=== PATIENT | female | born 1965 | race African-American/Black ===

== ENCOUNTER 2017-12-21 19:53 | Inpatient (IN) | payer OTHER ==
[2017-12-21] MEDS ORDERED: PIP/TAZO PER PHARMACY MC (20:30)
[2017-12-21 20:34] LABS: ADD MAN DIFF? YES; BASO # 0.1 x10^3/uL (0.0-0.2); BASO % 0 % (0-3); EOS % 0 % (0-3); HEMATOCRIT 33.4 % (36.0-47.0); HEMOGLOBIN 10.6 g/dL (12.0-15.5); LYMPH # 2.6 x10^3/uL (1.0-4.8); LYMPH % 9 % (24-48); MEAN CORPUSCULAR HEMOGLOBIN 27 pg (25-35); MEAN CORPUSCULAR HGB CONC 32 g/dL (31-37); MEAN CORPUSCULAR VOLUME 84 fL (79-100); MONO % 11 % (0-9); NEUT # 22.4 x10^3uL (1.8-7.7); NEUT % 80 % (31-73); PLATELET COUNT 427 x10^3/uL (140-400); RED BLOOD COUNT 3.98 x10^6/uL (3.50-5.40); RED CELL DISTRIBUTION WIDTH 15.4 % (11.5-14.5); WHITE BLOOD COUNT 28.1 x10^3/uL (4.0-11.0)
[2017-12-21 20:42] LABS: INR 1.2 (0.8-1.1); PROTHROMBIN TIME PATIENT 14.5 SEC (11.7-14.0)
[2017-12-21 20:53] LABS: LACTIC ACID 2.4 mmol/L (0.4-2.0)
[2017-12-21 20:54] LABS: TROPONINI < 0.017 ng/mL (0.000-0.055)
[2017-12-21 21:00] LABS: ALBUMIN 1.7 g/dL (3.4-5.0); ALBUMIN/GLOBULIN RATIO 0.3 (1.0-1.7); ALK PHOS 193 U/L (46-116); ALT (SGPT) 35 U/L (14-59); ANION GAP 32 (6-14); AST (SGOT) 18 U/L (15-37); BLOOD UREA NITROGEN 36 mg/dL (7-20); BUN/CREATININE RATIO 21 (6-20); CALCIUM 9.9 mg/dL (8.5-10.1); CARBON DIOXIDE 12 mmol/L (21-32); CHLORIDE 93 mmol/L (98-107); CREATININE 1.7 mg/dL (0.6-1.0); GFR 38.3; POTASSIUM 3.2 mmol/L (3.5-5.1); SODIUM 137 mmol/L (136-145); TOTAL BILIRUBIN 0.5 mg/dL (0.2-1.0); TOTAL PROTEIN 8.1 g/dL (6.4-8.2)
[2017-12-21] MEDS: IV NORMAL SALINE 1000ML BAG 1,000 ML IV ×2 (21:00→23:37)
[2017-12-21 21:02] LABS: GLUCOSE 549 mg/dL (70-99)
[2017-12-21 21:04] LABS: % BANDS 24 % (0-9); % LYMPHS 12 % (24-48); % METAS 2 % (0-0); % MONOS 11 % (0-10); % SEGS 51 % (35-66)
[2017-12-21 21:05] LABS: PLT ESTIMATE INCREASED (ADEQUATE); ROULEAUX PRESENT; TOXIC GRANULATION SLIGHT; TOXIC VACUOLATION SLIGHT
[2017-12-21] MEDS: ACETAMINOPHEN 325 MG TABLET. PO (21:29)
[2017-12-21] MEDS ORDERED: CONTRAST GIVEN MC (21:30)
[2017-12-21] MEDS: IOHEXOL 300 MG/ML 100ML VIAL. IV (21:45)
[2017-12-21] MEDS: PIPERACILLIN/TAZOBACTAM 3.375 GM in IV NORMAL SALINE 50ML 50 ML IV (21:51)
[2017-12-21] MEDS: VANCOMYCIN 2 GM in IV DEXTROSE 5 %-0.2 % NACL 500 ML IV (22:28)
[2017-12-21] MEDS ORDERED: ACETAMINOPHEN 325 MG TABLET. PO (22:45)
[2017-12-21] MEDS ORDERED: ONDANSETRON PF 4 MG/2 ML VIAL. IV (22:45)
[2017-12-21] MEDS ORDERED: DEXTROSE 50% 25 GM / 50ML DISP.SYRIN. IV (22:45)
[2017-12-21] MEDS ORDERED: fentaNYL PF VIAL 100 MCG/2 ML VIAL IV (22:45)
[2017-12-21] MEDS: fentaNYL PF VIAL 100 MCG/2 ML VIAL IV ×2 (23:00→23:38)
[2017-12-21] MEDS: INSULIN REGULAR 100 UNIT/ML 10ML VIAL. IV (23:38)
[2017-12-21 23:43] LABS: BILIRUBIN,URINE NEGATIVE (NEG); CLARITY,URINE CLEAR; COLOR,URINE YELLOW; GLUCOSE,URINE >=1000 mg/dL (NEG); NITRITE,URINE NEGATIVE (NEG); PH,URINE 5.5; PROTEIN,URINE 30 mg/dL (NEG-TRACE); UROBILINOGEN,URINE 0.2 mg/dL (0.2 mg/dL)
[2017-12-21 23:51] LABS: AMORPHOUS SEDIMENT,UR PRESENT /HPF; BACTERIA,URINE FEW /HPF (0-FEW); RBC,URINE OCC /HPF (0-2); SQUAMOUS EPITHELIAL CELL,UR OCC /LPF; WBC,URINE 0 /HPF (0-4)
[2017-12-22 00:40] LABS: POC GLUCOSE 412 mg/dL (70-99)
[2017-12-22] MEDS: POTASSIUM CHLORIDE 20 MEQ TABLET.ER. PO (01:15)
[2017-12-22] MEDS: INSULIN ASPART 300 UNITS/3 ML INSULN.PEN SQ ×5 (01:30→17:42)
[2017-12-22] MEDS: VANCOMYCIN PER PHARMACY MC (01:33)
[2017-12-22 03:15] LABS: LACTIC ACID 2.5 mmol/L (0.4-2.0)
[2017-12-22 05:35] LABS: ADD MAN DIFF? NO; BASO # 0.1 x10^3/uL (0.0-0.2); BASO % 0 % (0-3); EOS % 0 % (0-3); HEMATOCRIT 31.1 % (36.0-47.0); HEMOGLOBIN 9.9 g/dL (12.0-15.5); LYMPH # 2.2 x10^3/uL (1.0-4.8); LYMPH % 8 % (24-48); MEAN CORPUSCULAR HEMOGLOBIN 27 pg (25-35); MEAN CORPUSCULAR HGB CONC 32 g/dL (31-37); MEAN CORPUSCULAR VOLUME 84 fL (79-100); MONO # 2.2 x10^3/uL (0.0-1.1); MONO % 9 % (0-9); NEUT # 21.7 x10^3uL (1.8-7.7); NEUT % 83 % (31-73); PLATELET COUNT 407 x10^3/uL (140-400); RED BLOOD COUNT 3.71 x10^6/uL (3.50-5.40); RED CELL DISTRIBUTION WIDTH 15.2 % (11.5-14.5); WHITE BLOOD COUNT 26.3 x10^3/uL (4.0-11.0)
[2017-12-22 05:42] LABS: ALBUMIN 1.5 g/dL (3.4-5.0); ALBUMIN/GLOBULIN RATIO 0.2 (1.0-1.7); ALK PHOS 203 U/L (46-116); ALT (SGPT) 33 U/L (14-59); ANION GAP 28 (6-14); AST (SGOT) 22 U/L (15-37); BLOOD UREA NITROGEN 32 mg/dL (7-20); BUN/CREATININE RATIO 20 (6-20); CARBON DIOXIDE 13 mmol/L (21-32); CHLORIDE 97 mmol/L (98-107); CREATININE 1.6 mg/dL (0.6-1.0); GFR 41.1; GLUCOSE 435 mg/dL (70-99); POTASSIUM 3.5 mmol/L (3.5-5.1); SODIUM 138 mmol/L (136-145); TOTAL BILIRUBIN 0.5 mg/dL (0.2-1.0); TOTAL PROTEIN 7.7 g/dL (6.4-8.2)
[2017-12-22] MEDS: PIPERACILLIN/TAZOBACTAM 3.375 GM in IV NORMAL SALINE 100ML 100 ML IV ×2 (05:51→14:34)
[2017-12-22 05:58] LABS: POC GLUCOSE 467 mg/dL (70-99)
[2017-12-22 08:27] LABS: POC GLUCOSE 266 mg/dL (70-99)
[2017-12-22 08:27] LABS: POC GLUCOSE 349 mg/dL (70-99)
[2017-12-22] MEDS ORDERED: INSULIN DETEMIR 300 UNITS/3 ML INSULN.PEN. SQ (09:00)
[2017-12-22] MEDS: LACTOBACILLUS RHAMNOSUS GG 1 CAPSULE. PO ×3 (09:00→20:08)
[2017-12-22] MEDS ORDERED: DEXTROSE 50% 25 GM / 50ML DISP.SYRIN. IV (09:00)
[2017-12-22] MEDS: ENOXAPARIN 40 MG/0.4 ML SYRINGE. SQ (09:22)
[2017-12-22] MEDS: INSULIN DETEMIR 300 UNITS/3 ML INSULN.PEN. SQ (11:26)
[2017-12-22 11:39] LABS: THYROID STIM HORMONE (TSH) 0.658 uIU/mL (0.358-3.74)
[2017-12-22 12:57] LABS: VITAMIN-B12 > 2000 pg/mL (247-911)
[2017-12-22 14:55] LABS: POC GLUCOSE 286 mg/dL (70-99)
[2017-12-22 15:25] LABS: BARBITURATES NEG (NEG); BENZODIAZEPINES NEG (NEG); CANNABINOIDS NEG (NEG); COCAINE NEG (NEG); METHADONE NEG (NEG); OPIATES NEG (NEG); PHENCYCLIDINE NEG (NEG)
[2017-12-22 15:27] LABS: AMPHETAMINE/METHAMPHETAMINE NEG (NEG); ETHANOL, URINE NEG (NEG)
[2017-12-22] MEDS: CHOLECALCIFEROL (VITAMIN D3) 5,000 UNIT CAPSULE PO (17:00)
[2017-12-22] MEDS: ASPIRIN 300 MG SUPP.RECT PR (17:29)
[2017-12-22 18:03] LABS: POC GLUCOSE 199 mg/dL (70-99)
[2017-12-22] MEDS: PIPERACILLIN/TAZOBACTAM 3.375 GM in IV NORMAL SALINE 50ML 50 ML IV (18:12)
[2017-12-22] MEDS: CALCIUM CARBONATE 500 MG TABLET PO (20:08)
[2017-12-22 21:10] LABS: POC GLUCOSE 202 mg/dL (70-99)
[2017-12-22] MEDS ORDERED: VANCOMYCIN 1.5 GM in IV DEXTROSE 5 %-0.2 % NACL 500 ML IV (22:00)
[2017-12-23] MEDS: PIPERACILLIN/TAZOBACTAM 3.375 GM in IV NORMAL SALINE 50ML 50 ML IV ×4 (00:43→17:37)
[2017-12-23 04:41] LABS: ADD MAN DIFF? NO
[2017-12-23 04:50] LABS: BASO # 0.1 x10^3/uL (0.0-0.2); BASO % 0 % (0-3); EOS # 0.1 x10^3/uL (0.0-0.7); EOS % 0 % (0-3); HEMATOCRIT 26.5 % (36.0-47.0); HEMOGLOBIN 8.7 g/dL (12.0-15.5); LYMPH # 2.1 x10^3/uL (1.0-4.8); LYMPH % 9 % (24-48); MEAN CORPUSCULAR HEMOGLOBIN 26 pg (25-35); MEAN CORPUSCULAR HGB CONC 33 g/dL (31-37); MEAN CORPUSCULAR VOLUME 80 fL (79-100); MONO # 2.2 x10^3/uL (0.0-1.1); MONO % 9 % (0-9); NEUT # 19.9 x10^3uL (1.8-7.7); NEUT % 82 % (31-73); PLATELET COUNT 327 x10^3/uL (140-400); RED BLOOD COUNT 3.32 x10^6/uL (3.50-5.40); RED CELL DISTRIBUTION WIDTH 14.5 % (11.5-14.5); WHITE BLOOD COUNT 24.4 x10^3/uL (4.0-11.0)
[2017-12-23 05:15] LABS: ALBUMIN 1.3 g/dL (3.4-5.0); ALBUMIN/GLOBULIN RATIO 0.3 (1.0-1.7); ALK PHOS 256 U/L (46-116); ALT (SGPT) 78 U/L (14-59); ANION GAP 13 (6-14); AST (SGOT) 97 U/L (15-37); BLOOD UREA NITROGEN 36 mg/dL (7-20); BUN/CREATININE RATIO 23 (6-20); CALCIUM 8.4 mg/dL (8.5-10.1); CARBON DIOXIDE 24 mmol/L (21-32); CHLORIDE 99 mmol/L (98-107); CREATININE 1.6 mg/dL (0.6-1.0); GFR 41.1; GLUCOSE 315 mg/dL (70-99); SODIUM 136 mmol/L (136-145); TOTAL BILIRUBIN 0.4 mg/dL (0.2-1.0); TOTAL PROTEIN 5.9 g/dL (6.4-8.2)
[2017-12-23 05:18] LABS: POTASSIUM 2.8 mmol/L (3.5-5.1)
[2017-12-23 05:23] LABS: CHOLESTEROL 113 mg/dL (0-200); HDLC 8 mg/dL (40-60); LDLC 79 mg/dL (0-100); NON-HDL CHOLESTEROL 105 mg/dL (0-129); TRIGLYCERIDES 132 mg/dL (0-150); VLDLC 26 mg/dL (0-40)
[2017-12-23 05:24] LABS: CHOLESTEROL/HDL RATIO 14.1
[2017-12-23 07:52] LABS: POC GLUCOSE 370 mg/dL (70-99)
[2017-12-23] MEDS: INSULIN ASPART 300 UNITS/3 ML INSULN.PEN SQ ×5 (08:00→17:45)
[2017-12-23] MEDS: ASPIRIN 325 MG TABLET PO (08:47)
[2017-12-23] MEDS: LACTOBACILLUS RHAMNOSUS GG 1 CAPSULE. PO ×2 (08:47→20:40)
[2017-12-23] MEDS: CHOLECALCIFEROL (VITAMIN D3) 5,000 UNIT CAPSULE PO (08:47)
[2017-12-23] MEDS: CALCIUM CARBONATE 500 MG TABLET PO ×2 (08:47→20:41)
[2017-12-23] MEDS: POTASSIUM CHLORIDE 20 MEQ TABLET.ER. PO (08:47)
[2017-12-23] MEDS: ENOXAPARIN 40 MG/0.4 ML SYRINGE. SQ (08:48)
[2017-12-23] MEDS: INSULIN DETEMIR 300 UNITS/3 ML INSULN.PEN. SQ (09:06)
[2017-12-23 10:28] LABS: ANION GAP 12 (6-14); BLOOD UREA NITROGEN 39 mg/dL (7-20); CALCIUM 8.5 mg/dL (8.5-10.1); CARBON DIOXIDE 24 mmol/L (21-32); CHLORIDE 95 mmol/L (98-107); CREATININE 1.7 mg/dL (0.6-1.0); GFR 38.3; GLUCOSE 386 mg/dL (70-99); SODIUM 131 mmol/L (136-145)
[2017-12-23 10:49] LABS: POTASSIUM 2.7 mmol/L (3.5-5.1)
[2017-12-23] MEDS ORDERED: POTASSIUM CHLORIDE 20MEQ 50 ML IV (11:30)
[2017-12-23 11:51] LABS: POC GLUCOSE 376 mg/dL (70-99)
[2017-12-23] MEDS: IV NORMAL SALINE 1000ML BAG 1,000 ML IV ×2 (13:13→20:41)
[2017-12-23] MEDS: POTASSIUM CHLORIDE 10 MEQ in IV NORMAL SALINE 100ML 100 ML IV ×4 (13:14→16:30)
[2017-12-23] MEDS: oxyCODONE/APAP 5/325 1 TAB TABLET PO (14:07)
[2017-12-23 17:05] LABS: POC GLUCOSE 254 mg/dL (70-99)
[2017-12-24] MEDS: PIPERACILLIN/TAZOBACTAM 3.375 GM in IV NORMAL SALINE 50ML 50 ML IV ×4 (01:05→18:38)
[2017-12-24] MEDS: INSULIN ASPART 300 UNITS/3 ML INSULN.PEN SQ ×7 (07:30→18:52)
[2017-12-24 07:36] LABS: POC GLUCOSE 238 mg/dL (70-99)
[2017-12-24] MEDS ORDERED: ONDANSETRON PF 4 MG/2 ML VIAL. IV (08:30)
[2017-12-24] MEDS: IV NORMAL SALINE 1000ML BAG 1,000 ML IV (08:31)
[2017-12-24] MEDS: ASPIRIN 325 MG TABLET PO (08:31)
[2017-12-24] MEDS: CHOLECALCIFEROL (VITAMIN D3) 5,000 UNIT CAPSULE PO (08:31)
[2017-12-24] MEDS: LACTOBACILLUS RHAMNOSUS GG 1 CAPSULE. PO ×2 (08:31→20:30)
[2017-12-24] MEDS: CALCIUM CARBONATE 500 MG TABLET PO ×2 (08:31→20:30)
[2017-12-24] MEDS: ENOXAPARIN 40 MG/0.4 ML SYRINGE. SQ (08:31)
[2017-12-24] MEDS: INSULIN DETEMIR 300 UNITS/3 ML INSULN.PEN. SQ (08:52)
[2017-12-24] MEDS: oxyCODONE/APAP 5/325 1 TAB TABLET PO ×2 (08:54→15:59)
[2017-12-24 10:39] LABS: ANION GAP 13 (6-14); BLOOD UREA NITROGEN 38 mg/dL (7-20); CALCIUM 8.1 mg/dL (8.5-10.1); CARBON DIOXIDE 21 mmol/L (21-32); CHLORIDE 99 mmol/L (98-107); CREATININE 1.8 mg/dL (0.6-1.0); GFR 35.9; GLUCOSE 313 mg/dL (70-99); SODIUM 133 mmol/L (136-145)
[2017-12-24 10:44] LABS: POTASSIUM 2.7 mmol/L (3.5-5.1)
[2017-12-24 12:00] LABS: POC GLUCOSE 203 mg/dL (70-99)
[2017-12-24] MEDS ORDERED: DEXTROSE 50% 25 GM / 50ML DISP.SYRIN. IV (15:00)
[2017-12-24] MEDS ORDERED: POTASSIUM CHLORIDE 40 MEQ in IV NORMAL SALINE 1000ML BAG 1,000 ML IV (15:07)
[2017-12-24] MEDS ORDERED: POTASSIUM CHLORIDE 20 MEQ TABLET.ER. PO (15:15)
[2017-12-24] MEDS ORDERED: MAGNESIUM SULFATE 2GM 50 ML IV ×2 (15:15)
[2017-12-24 15:43] LABS: PREALBUMIN 6.4 mg/dL (16.0-42.0)
[2017-12-24] MEDS: POTASSIUM CHLORIDE 20 MEQ TABLET.ER. PO ×2 (15:59→18:38)
[2017-12-24] MEDS ORDERED: INSULIN ASPART 300 UNITS/3 ML INSULN.PEN SQ (17:00)
[2017-12-24 18:28] LABS: POTASSIUM 3.1 mmol/L (3.5-5.1)
[2017-12-24] MEDS: POTASSIUM CL 40MEQ IN 0.9%NACL 1,000 ML IV (18:38)
[2017-12-24 18:43] LABS: POC GLUCOSE 118 mg/dL (70-99)
[2017-12-24 20:45] LABS: POC GLUCOSE 90 mg/dL (70-99)
[2017-12-25] MEDS: PIPERACILLIN/TAZOBACTAM 3.375 GM in IV NORMAL SALINE 50ML 50 ML IV ×3 (00:31→12:00)
[2017-12-25 04:50] LABS: ADD MAN DIFF? NO
[2017-12-25 05:18] LABS: BASO # 0.1 x10^3/uL (0.0-0.2); BASO % 0 % (0-3); EOS # 0.2 x10^3/uL (0.0-0.7); EOS % 1 % (0-3); HEMATOCRIT 26.3 % (36.0-47.0); HEMOGLOBIN 8.6 g/dL (12.0-15.5); LYMPH % 11 % (24-48); MEAN CORPUSCULAR HEMOGLOBIN 26 pg (25-35); MEAN CORPUSCULAR HGB CONC 33 g/dL (31-37); MEAN CORPUSCULAR VOLUME 81 fL (79-100); MONO # 1.9 x10^3/uL (0.0-1.1); MONO % 7 % (0-9); NEUT # 21.9 x10^3uL (1.8-7.7); NEUT % 81 % (31-73); PLATELET COUNT 306 x10^3/uL (140-400); RED BLOOD COUNT 3.26 x10^6/uL (3.50-5.40); RED CELL DISTRIBUTION WIDTH 14.3 % (11.5-14.5)
[2017-12-25] MEDS: POTASSIUM CL 40MEQ IN 0.9%NACL 1,000 ML IV ×3 (05:41→22:44)
[2017-12-25] MEDS: oxyCODONE/APAP 5/325 1 TAB TABLET PO ×3 (05:45→23:24)
[2017-12-25 05:57] LABS: ALBUMIN 1.2 g/dL (3.4-5.0); ANION GAP 10 (6-14); BLOOD UREA NITROGEN 28 mg/dL (7-20); CALCIUM 8.2 mg/dL (8.5-10.1); CARBON DIOXIDE 22 mmol/L (21-32); CHLORIDE 102 mmol/L (98-107); CREATINE KINASE 59 U/L (26-192); CREATININE 1.3 mg/dL (0.6-1.0); GFR 52.3; GLUCOSE 73 mg/dL (70-99); PHOSPHORUS 1.2 mg/dL (2.6-4.7); POTASSIUM 3.5 mmol/L (3.5-5.1); SODIUM 134 mmol/L (136-145)
[2017-12-25 07:29] LABS: POC GLUCOSE 174 mg/dL (70-99)
[2017-12-25] MEDS: LACTOBACILLUS RHAMNOSUS GG 1 CAPSULE. PO ×2 (09:52→20:49)
[2017-12-25] MEDS: CHOLECALCIFEROL (VITAMIN D3) 5,000 UNIT CAPSULE PO (09:52)
[2017-12-25] MEDS: ASPIRIN 325 MG TABLET PO (09:52)
[2017-12-25] MEDS: CALCIUM CARBONATE 500 MG TABLET PO ×2 (09:52→20:49)
[2017-12-25] MEDS: ENOXAPARIN 40 MG/0.4 ML SYRINGE. SQ (09:52)
[2017-12-25] MEDS: INSULIN DETEMIR 300 UNITS/3 ML INSULN.PEN. SQ (10:06)
[2017-12-25] MEDS: INSULIN ASPART 300 UNITS/3 ML INSULN.PEN SQ ×7 (10:07→19:03)
[2017-12-25 12:11] LABS: POC GLUCOSE 206 mg/dL (70-99)
[2017-12-25] MEDS: DEXTROSE IV ×3 (12:28→20:51)
[2017-12-25] MEDS: POTASSIUM PHOSPHATE DIBASIC IV ×3 (12:28→20:51)
[2017-12-25] MEDS: NACL IV ×3 (12:28→20:51)
[2017-12-25 12:51] LABS: POTASSIUM 3.5 mmol/L (3.5-5.1)
[2017-12-25] MEDS: MEROPENEM IV Push 500 MG VIAL. IVP ×3 (12:56→23:41)
[2017-12-25] MEDS: MICAFUNGIN 100 MG in IV DEXTROSE 5% 100 ML IV (12:57)
[2017-12-25] MEDS: CLINDAMYCIN 600MG PREMIX 50 ML IV ×2 (14:30→23:41)
[2017-12-25 15:29] LABS: BILIRUBIN,URINE SMALL (NEG); CLARITY,URINE CLEAR; COLOR,URINE AMBER; GLUCOSE,URINE 100 mg/dL (NEG); NITRITE,URINE NEGATIVE (NEG); PROTEIN,URINE 100 mg/dL (NEG-TRACE)
[2017-12-25 15:43] LABS: BACTERIA,URINE 0 /HPF (0-FEW); WBC,URINE >40 /HPF (0-4); YEAST,URINE PRESENT /HPF
[2017-12-25] MEDS ORDERED: MEROPENEM 500 MG in IV NORMAL SALINE 50ML 50 ML IV (18:00)
[2017-12-25 18:45] LABS: POTASSIUM 3.9 mmol/L (3.5-5.1)
[2017-12-25 22:53] LABS: POC GLUCOSE 119 mg/dL (70-99)
[2017-12-26 05:03] LABS: ADD MAN DIFF? NO
[2017-12-26 05:12] LABS: BASO # 0.1 x10^3/uL (0.0-0.2); BASO % 0 % (0-3); EOS # 0.2 x10^3/uL (0.0-0.7); EOS % 1 % (0-3); HEMATOCRIT 25.2 % (36.0-47.0); HEMOGLOBIN 8.1 g/dL (12.0-15.5); LYMPH # 3.4 x10^3/uL (1.0-4.8); LYMPH % 16 % (24-48); MEAN CORPUSCULAR HEMOGLOBIN 26 pg (25-35); MEAN CORPUSCULAR HGB CONC 32 g/dL (31-37); MEAN CORPUSCULAR VOLUME 83 fL (79-100); MONO # 2.3 x10^3/uL (0.0-1.1); MONO % 11 % (0-9); NEUT # 14.7 x10^3uL (1.8-7.7); NEUT % 71 % (31-73); PLATELET COUNT 285 x10^3/uL (140-400); RED BLOOD COUNT 3.06 x10^6/uL (3.50-5.40); RED CELL DISTRIBUTION WIDTH 14.8 % (11.5-14.5); WHITE BLOOD COUNT 20.7 x10^3/uL (4.0-11.0)
[2017-12-26 05:42] LABS: ALBUMIN 1.2 g/dL (3.4-5.0); ANION GAP 12 (6-14); BLOOD UREA NITROGEN 22 mg/dL (7-20); CALCIUM 8.5 mg/dL (8.5-10.1); CARBON DIOXIDE 21 mmol/L (21-32); CHLORIDE 100 mmol/L (98-107); CREATINE KINASE 90 U/L (26-192); CREATININE 1.2 mg/dL (0.6-1.0); GFR 57.3; GLUCOSE 126 mg/dL (70-99); PHOSPHORUS 2.8 mg/dL (2.6-4.7); SODIUM 133 mmol/L (136-145)
[2017-12-26] MEDS: MEROPENEM IV Push 500 MG VIAL. IVP ×2 (05:55→12:14)
[2017-12-26] MEDS: CLINDAMYCIN 600MG PREMIX 50 ML IV ×3 (05:55→22:29)
[2017-12-26] MEDS: MORPHINE SULFATE 4 MG/ML DISP.SYRIN. IV ×2 (05:55→17:23)
[2017-12-26 06:19] LABS: HEMOGLOBIN A1C 16.9 % (4.8-5.6)
[2017-12-26] MEDS: INSULIN ASPART 300 UNITS/3 ML INSULN.PEN SQ ×7 (07:30→18:31)
[2017-12-26 07:52] LABS: POC GLUCOSE 139 mg/dL (70-99)
[2017-12-26] MEDS: ASPIRIN 325 MG TABLET PO (08:00)
[2017-12-26] MEDS: LACTOBACILLUS RHAMNOSUS GG 1 CAPSULE. PO ×2 (09:00→20:16)
[2017-12-26] MEDS: CHOLECALCIFEROL (VITAMIN D3) 5,000 UNIT CAPSULE PO (09:00)
[2017-12-26] MEDS: INSULIN DETEMIR 300 UNITS/3 ML INSULN.PEN. SQ (09:00)
[2017-12-26] MEDS: CALCIUM CARBONATE 500 MG TABLET PO ×2 (09:00→20:16)
[2017-12-26] MEDS: ENOXAPARIN 40 MG/0.4 ML SYRINGE. SQ (10:00)
[2017-12-26] MEDS: POTASSIUM CL 40MEQ IN 0.9%NACL 1,000 ML IV ×2 (10:54→20:24)
[2017-12-26 12:03] LABS: POTASSIUM 4.7 mmol/L (3.5-5.1)
[2017-12-26] MEDS: MICAFUNGIN 100 MG in IV DEXTROSE 5% 100 ML IV (12:15)
[2017-12-26 12:27] LABS: POC GLUCOSE 167 mg/dL (70-99)
[2017-12-26] MEDS ORDERED: fentaNYL PF VIAL 100 MCG/2 ML VIAL (12:38)
[2017-12-26] MEDS ORDERED: PROPOFOL 20 ML IV (12:38)
[2017-12-26] MEDS ORDERED: BUPIVACAINE-EPI 0.25%-1:200000 50 ML VIAL. (13:36)
[2017-12-26] MEDS: IV RINGERS,LACTATED 1000ML 1,000 ML IV (14:48)
[2017-12-26 15:01] LABS: POC GLUCOSE 190 mg/dL (70-99)
[2017-12-26] MEDS: DEXTROSE 5% IV ×2 (15:37→22:29)
[2017-12-26] MEDS: ACYCLOVIR SODIUM IV ×2 (15:37→22:29)
[2017-12-26 15:39] LABS: TOTAL PROTEIN CREATININE RATIO 1165 mg/g creat (0-200); UR CREATININE RD 129.5 mg/dL (Not Estab.); UR PROTEIN RD 150.9 mg/dL (Not Estab.)
[2017-12-26] MEDS ORDERED: FAMOTIDINE 20 MG/2 ML VIAL (16:04)
[2017-12-26] MEDS ORDERED: ONDANSETRON PF 4 MG/2 ML VIAL. (16:04)
[2017-12-26] MEDS ORDERED: SEVOFLURANE 31 TO 60 MINUTES. IH (16:28)
[2017-12-26 16:53] LABS: POC GLUCOSE 228 mg/dL (70-99)
[2017-12-26] MEDS ORDERED: INSULIN ASPART 100 UNIT/ML 10ML VIAL. SQ (16:59)
[2017-12-26 17:41] LABS: POC GLUCOSE 224 mg/dL (70-99)
[2017-12-26] MEDS ORDERED: POTASSIUM CHLORIDE 20 MEQ TABLET.ER. PO (17:45)
[2017-12-26] MEDS: MEROPENEM 500 MG in IV NORMAL SALINE 50ML 50 ML IV ×2 (18:24→23:54)
[2017-12-26 19:06] LABS: POTASSIUM 4.9 mmol/L (3.5-5.1)
[2017-12-26 21:17] LABS: POC GLUCOSE 259 mg/dL (70-99)
[2017-12-27] MEDS: POTASSIUM CL 40MEQ IN 0.9%NACL 1,000 ML IV (03:36)
[2017-12-27] MEDS: IV RINGERS,LACTATED 1000ML 1,000 ML IV (03:36)
[2017-12-27 04:29] LABS: POC GLUCOSE 125 mg/dL (70-99)
[2017-12-27] MEDS: CLINDAMYCIN 600MG PREMIX 50 ML IV (05:43)
[2017-12-27] MEDS: MEROPENEM 500 MG in IV NORMAL SALINE 50ML 50 ML IV ×4 (05:43→23:27)
[2017-12-27] MEDS: DEXTROSE 5% IV (06:31)
[2017-12-27] MEDS: ACYCLOVIR SODIUM IV (06:31)
[2017-12-27] MEDS: MORPHINE SULFATE 4 MG/ML DISP.SYRIN. IV ×2 (06:45→15:01)
[2017-12-27 07:17] LABS: ALBUMIN 1.1 g/dL (3.4-5.0); CALCIUM 8.1 mg/dL (8.5-10.1)
[2017-12-27 07:18] LABS: ANION GAP 14 (6-14); BLOOD UREA NITROGEN 22 mg/dL (7-20); CARBON DIOXIDE 18 mmol/L (21-32); CHLORIDE 97 mmol/L (98-107); CREATINE KINASE 130 U/L (26-192); CREATININE 1.1 mg/dL (0.6-1.0); GFR 63.4; GLUCOSE 370 mg/dL (70-99); PHOSPHORUS 2.8 mg/dL (2.6-4.7); POTASSIUM 5.7 mmol/L (3.5-5.1); SODIUM 129 mmol/L (136-145)
[2017-12-27 07:48] LABS: POC GLUCOSE 374 mg/dL (70-99)
[2017-12-27] MEDS: LACTOBACILLUS RHAMNOSUS GG 1 CAPSULE. PO ×2 (09:04→21:14)
[2017-12-27] MEDS: ASPIRIN 325 MG TABLET PO (09:04)
[2017-12-27] MEDS: CALCIUM CARBONATE 500 MG TABLET PO ×2 (09:05→21:14)
[2017-12-27] MEDS: CHOLECALCIFEROL (VITAMIN D3) 5,000 UNIT CAPSULE PO (09:05)
[2017-12-27] MEDS: INSULIN DETEMIR 300 UNITS/3 ML INSULN.PEN. SQ ×2 (09:20→12:29)
[2017-12-27] MEDS: INSULIN ASPART 300 UNITS/3 ML INSULN.PEN SQ ×6 (09:28→18:01)
[2017-12-27] MEDS: ERGOCALCIFEROL (VITAMIN D2) 50,000 UNIT CAPSULE. PO (09:55)
[2017-12-27] MEDS: ACETAMINOPHEN 500 MG TABLET PO (10:35)
[2017-12-27] MEDS: oxyCODONE/APAP 5/325 1 TAB TABLET PO (10:36)
[2017-12-27 12:00] LABS: POC GLUCOSE 419 mg/dL (70-99)
[2017-12-27] MEDS ORDERED: LOPERAMIDE 2 MG CAPSULE PO (12:00)
[2017-12-27] MEDS: MICAFUNGIN 100 MG in IV DEXTROSE 5% 100 ML IV (13:12)
[2017-12-27] MEDS: SODIUM BICARB ADULT 8.4% 50 MEQ/50 ML DISP.SYRIN. IV ×2 (14:21→17:11)
[2017-12-27 16:44] LABS: POC GLUCOSE 242 mg/dL (70-99)
[2017-12-27 21:27] LABS: POC GLUCOSE 141 mg/dL (70-99)
[2017-12-28] MEDS: MORPHINE SULFATE 4 MG/ML DISP.SYRIN. IV ×2 (04:48→22:50)
[2017-12-28] MEDS: MEROPENEM 500 MG in IV NORMAL SALINE 50ML 50 ML IV ×3 (06:11→18:35)
[2017-12-28 06:22] LABS: ADD MAN DIFF? NO
[2017-12-28 06:27] LABS: BASO % 0 % (0-3); EOS # 0.3 x10^3/uL (0.0-0.7); EOS % 1 % (0-3); HEMATOCRIT 24.9 % (36.0-47.0); LYMPH # 3.7 x10^3/uL (1.0-4.8); LYMPH % 17 % (24-48); MEAN CORPUSCULAR HEMOGLOBIN 26 pg (25-35); MEAN CORPUSCULAR HGB CONC 32 g/dL (31-37); MEAN CORPUSCULAR VOLUME 82 fL (79-100); MONO # 2.3 x10^3/uL (0.0-1.1); MONO % 11 % (0-9); NEUT # 15.1 x10^3uL (1.8-7.7); NEUT % 71 % (31-73); PLATELET COUNT 382 x10^3/uL (140-400); RED BLOOD COUNT 3.05 x10^6/uL (3.50-5.40); RED CELL DISTRIBUTION WIDTH 14.5 % (11.5-14.5); WHITE BLOOD COUNT 21.3 x10^3/uL (4.0-11.0)
[2017-12-28 07:01] LABS: ALBUMIN 1.3 g/dL (3.4-5.0); ANION GAP 10 (6-14); BLOOD UREA NITROGEN 22 mg/dL (7-20); CALCIUM 8.7 mg/dL (8.5-10.1); CARBON DIOXIDE 25 mmol/L (21-32); CHLORIDE 100 mmol/L (98-107); CREATINE KINASE 1146 U/L (26-192); GFR 70.7; GLUCOSE 125 mg/dL (70-99); MAGNESIUM 1.9 mg/dL (1.8-2.4); PHOSPHORUS 2.3 mg/dL (2.6-4.7); POTASSIUM 4.6 mmol/L (3.5-5.1); SODIUM 135 mmol/L (136-145)
[2017-12-28] MEDS: INSULIN ASPART 300 UNITS/3 ML INSULN.PEN SQ ×6 (08:00→18:10)
[2017-12-28 08:13] LABS: POC GLUCOSE 124 mg/dL (70-99)
[2017-12-28] MEDS: LACTOBACILLUS RHAMNOSUS GG 1 CAPSULE. PO ×2 (08:37→21:10)
[2017-12-28] MEDS: CALCIUM CARBONATE 500 MG TABLET PO ×2 (08:37→21:10)
[2017-12-28] MEDS: ASPIRIN 325 MG TABLET PO (08:37)
[2017-12-28] MEDS: SODIUM HYPOCHLORITE 0.125% 473 ML BOTTLE. TP (09:00)
[2017-12-28] MEDS: INSULIN DETEMIR 300 UNITS/3 ML INSULN.PEN. SQ (09:00)
[2017-12-28] MEDS: ONDANSETRON ODT 4 MG TAB.RAPDIS. PO (11:05)
[2017-12-28 11:46] LABS: POC GLUCOSE 156 mg/dL (70-99)
[2017-12-28] MEDS: MICAFUNGIN 100 MG in IV DEXTROSE 5% 100 ML IV (15:32)
[2017-12-28 17:51] LABS: POC GLUCOSE 221 mg/dL (70-99)
[2017-12-28 21:51] LABS: POC GLUCOSE 183 mg/dL (70-99)
[2017-12-29] MEDS: MEROPENEM 500 MG in IV NORMAL SALINE 50ML 50 ML IV ×4 (00:13→18:00)
[2017-12-29 06:10] LABS: MAGNESIUM 1.8 mg/dL (1.8-2.4)
[2017-12-29 06:13] LABS: ALBUMIN 1.2 g/dL (3.4-5.0); ANION GAP 4 (6-14); BLOOD UREA NITROGEN 14 mg/dL (7-20); CALCIUM 8.3 mg/dL (8.5-10.1); CARBON DIOXIDE 26 mmol/L (21-32); CHLORIDE 100 mmol/L (98-107); CREATININE 0.9 mg/dL (0.6-1.0); GFR 79.9; GLUCOSE 225 mg/dL (70-99); PHOSPHORUS 3.2 mg/dL (2.6-4.7); POTASSIUM 4.6 mmol/L (3.5-5.1); SODIUM 130 mmol/L (136-145)
[2017-12-29 06:17] LABS: CREATINE KINASE 515 U/L (26-192)
[2017-12-29] MEDS ORDERED: IPRATRPIUM/ALBUTEROL 0.5/2.5MG 3 ML NEBU. NEB (08:00)
[2017-12-29 08:03] LABS: POC GLUCOSE 211 mg/dL (70-99)
[2017-12-29] MEDS: LACTOBACILLUS RHAMNOSUS GG 1 CAPSULE. PO ×2 (08:59→21:02)
[2017-12-29] MEDS: CALCIUM CARBONATE 500 MG TABLET PO ×2 (08:59→21:02)
[2017-12-29] MEDS: ASPIRIN 325 MG TABLET PO (08:59)
[2017-12-29] MEDS: SODIUM HYPOCHLORITE 0.125% 473 ML BOTTLE. TP (09:00)
[2017-12-29] MEDS: INSULIN ASPART 300 UNITS/3 ML INSULN.PEN SQ ×6 (09:10→17:00)
[2017-12-29] MEDS: INSULIN DETEMIR 300 UNITS/3 ML INSULN.PEN. SQ (09:13)
[2017-12-29] MEDS ORDERED: 0.9 % SODIUM CHLORIDE 10 ML DISP.SYRIN. IV ×2 (10:30)
[2017-12-29] MEDS ORDERED: MAGNESIUM SULFATE 2GM 50 ML IV (14:30)
[2017-12-29] MEDS ORDERED: POTASSIUM CHLORIDE 20MEQ 50 ML IV ×2 (14:30)
[2017-12-29 14:43] LABS: POC GLUCOSE 143 mg/dL (70-99)
[2017-12-29 16:34] LABS: POC GLUCOSE 48 mg/dL (70-99)
[2017-12-29] MEDS: MICAFUNGIN 100 MG in IV DEXTROSE 5% 100 ML IV (16:46)
[2017-12-29 16:52] LABS: POC GLUCOSE 51 mg/dL (70-99)
[2017-12-29] MEDS: DEXTROSE 50% 25 GM / 50ML DISP.SYRIN. IV (16:53)
[2017-12-29 17:15] LABS: C DIFF BY PCR Negative (Negative)
[2017-12-29 17:32] LABS: POC GLUCOSE 136 mg/dL (70-99)
[2017-12-29] MEDS: ALBUMIN HUMAN 25% 100 ML IV ×2 (18:19→21:01)
[2017-12-29 18:48] LABS: POTASSIUM 4.2 mmol/L (3.5-5.1)
[2017-12-29 19:15] LABS: POC GLUCOSE 165 mg/dL (70-99)
[2017-12-29] MEDS: FUROSEMIDE 40 MG/4 ML VIAL. IVP (20:01)
[2017-12-29 22:19] LABS: POC GLUCOSE 190 mg/dL (70-99)
[2017-12-30] MEDS: MEROPENEM 500 MG in IV NORMAL SALINE 50ML 50 ML IV ×5 (01:55→23:03)
[2017-12-30] MEDS: ACETAMINOPHEN 500 MG TABLET PO (02:00)
[2017-12-30 05:51] LABS: ANION GAP 7 (6-14); BLOOD UREA NITROGEN 13 mg/dL (7-20); CALCIUM 8.9 mg/dL (8.5-10.1); CARBON DIOXIDE 28 mmol/L (21-32); CHLORIDE 99 mmol/L (98-107); CREATININE 0.9 mg/dL (0.6-1.0); GFR 79.9; GLUCOSE 245 mg/dL (70-99); PHOSPHORUS 3.1 mg/dL (2.6-4.7); POTASSIUM 4.3 mmol/L (3.5-5.1); SODIUM 134 mmol/L (136-145)
[2017-12-30 05:51] LABS: MAGNESIUM 1.6 mg/dL (1.8-2.4)
[2017-12-30 05:55] LABS: CREATINE KINASE 335 U/L (26-192)
[2017-12-30 08:05] LABS: POC GLUCOSE 226 mg/dL (70-99)
[2017-12-30] MEDS: SODIUM HYPOCHLORITE 0.125% 473 ML BOTTLE. TP (09:00)
[2017-12-30] MEDS: FUROSEMIDE 40 MG/4 ML VIAL. IVP ×2 (09:29→17:29)
[2017-12-30] MEDS: ASPIRIN 325 MG TABLET PO (09:29)
[2017-12-30] MEDS: CALCIUM CARBONATE 500 MG TABLET PO ×2 (09:29→20:42)
[2017-12-30] MEDS: LACTOBACILLUS RHAMNOSUS GG 1 CAPSULE. PO ×2 (09:29→20:42)
[2017-12-30] MEDS: INSULIN ASPART 300 UNITS/3 ML INSULN.PEN SQ ×6 (09:40→17:00)
[2017-12-30] MEDS: INSULIN DETEMIR 300 UNITS/3 ML INSULN.PEN. SQ (09:41)
[2017-12-30] MEDS: ALBUMIN HUMAN 25% 100 ML IV ×3 (11:39→20:43)
[2017-12-30 12:05] LABS: POC GLUCOSE 174 mg/dL (70-99)
[2017-12-30 12:24] LABS: POTASSIUM 3.8 mmol/L (3.5-5.1)
[2017-12-30] MEDS: MICAFUNGIN 100 MG in IV DEXTROSE 5% 100 ML IV (14:21)
[2017-12-30 17:03] LABS: POC GLUCOSE 78 mg/dL (70-99)
[2017-12-30 19:05] LABS: POTASSIUM 4.1 mmol/L (3.5-5.1)
[2017-12-30] MEDS: oxyCODONE/APAP 5/325 1 TAB TABLET PO (21:03)
[2017-12-30 21:32] LABS: POC GLUCOSE 149 mg/dL (70-99)
[2017-12-31] MEDS: MEROPENEM 500 MG in IV NORMAL SALINE 50ML 50 ML IV ×2 (05:42→13:14)
[2017-12-31 06:09] LABS: ADD MAN DIFF? NO
[2017-12-31 06:28] LABS: ALBUMIN 2.4 g/dL (3.4-5.0); ALBUMIN/GLOBULIN RATIO 0.5 (1.0-1.7); ALK PHOS 283 U/L (46-116); ALT (SGPT) 69 U/L (14-59); ANION GAP 5 (6-14); AST (SGOT) 29 U/L (15-37); BLOOD UREA NITROGEN 10 mg/dL (7-20); BUN/CREATININE RATIO 11 (6-20); CARBON DIOXIDE 32 mmol/L (21-32); CHLORIDE 101 mmol/L (98-107); CREATININE 0.9 mg/dL (0.6-1.0); GFR 79.9; GLUCOSE 179 mg/dL (70-99); PHOSPHORUS 3.2 mg/dL (2.6-4.7); POTASSIUM 4.3 mmol/L (3.5-5.1); SODIUM 138 mmol/L (136-145); TOTAL BILIRUBIN 0.4 mg/dL (0.2-1.0); TOTAL PROTEIN 7.6 g/dL (6.4-8.2)
[2017-12-31 06:29] LABS: CREATINE KINASE 174 U/L (26-192)
[2017-12-31 06:37] LABS: MAGNESIUM 1.7 mg/dL (1.8-2.4)
[2017-12-31 06:46] LABS: BASO # 0.1 x10^3/uL (0.0-0.2); BASO % 0 % (0-3); EOS # 0.2 x10^3/uL (0.0-0.7); EOS % 1 % (0-3); HEMATOCRIT 21.2 % (36.0-47.0); LYMPH % 28 % (24-48); MEAN CORPUSCULAR HEMOGLOBIN 27 pg (25-35); MEAN CORPUSCULAR HGB CONC 33 g/dL (31-37); MEAN CORPUSCULAR VOLUME 83 fL (79-100); MONO # 1.4 x10^3/uL (0.0-1.1); MONO % 10 % (0-9); NEUT # 8.4 x10^3uL (1.8-7.7); NEUT % 60 % (31-73); PLATELET COUNT 410 x10^3/uL (140-400); RED BLOOD COUNT 2.56 x10^6/uL (3.50-5.40); RED CELL DISTRIBUTION WIDTH 14.2 % (11.5-14.5)
[2017-12-31 06:53] LABS: HEMOGLOBIN 6.9 g/dL (12.0-15.5)
[2017-12-31 07:54] LABS: POC GLUCOSE 180 mg/dL (70-99)
[2017-12-31] MEDS: SODIUM HYPOCHLORITE 0.125% 473 ML BOTTLE. TP (09:00)
[2017-12-31] MEDS: ASPIRIN 325 MG TABLET PO (09:12)
[2017-12-31] MEDS: CALCIUM CARBONATE 500 MG TABLET PO ×2 (09:12→21:02)
[2017-12-31] MEDS: LACTOBACILLUS RHAMNOSUS GG 1 CAPSULE. PO ×2 (09:12→21:02)
[2017-12-31] MEDS: FUROSEMIDE 40 MG/4 ML VIAL. IVP ×2 (09:13→17:00)
[2017-12-31] MEDS: ALBUMIN HUMAN 25% 100 ML IV ×3 (09:14→21:02)
[2017-12-31] MEDS: INSULIN ASPART 300 UNITS/3 ML INSULN.PEN SQ ×6 (09:22→16:49)
[2017-12-31] MEDS: INSULIN DETEMIR 300 UNITS/3 ML INSULN.PEN. SQ (09:23)
[2017-12-31 11:43] LABS: POC GLUCOSE 177 mg/dL (70-99)
[2017-12-31 14:24] LABS: IMMEDIATE SPIN CROSSMATCH 1 1
[2017-12-31 16:57] LABS: POC GLUCOSE 55 mg/dL (70-99)
[2017-12-31] MEDS: MICAFUNGIN 100 MG in IV DEXTROSE 5% 100 ML IV (16:57)
[2017-12-31 16:58] LABS: POC GLUCOSE 107 mg/dL (70-99)
[2017-12-31 16:58] LABS: POC GLUCOSE 56 mg/dL (70-99)
[2017-12-31] MEDS: AMOXICILLIN/K CLAV 875/125MG TABLET. PO (21:02)
[2017-12-31] MEDS: metroNIDAZOLE 500 MG TABLET PO (21:02)
[2017-12-31 21:52] LABS: POC GLUCOSE 155 mg/dL (70-99)
[2017-12-31 23:50] LABS: FECAL OB PT NEGATIVE (NEG)
[2017-12-31 23:51] LABS: NEG OBC FOB NEG; POS OBC FOB POS
[2018-01-01 06:12] LABS: POTASSIUM 3.9 mmol/L (3.5-5.1)
[2018-01-01 07:53] LABS: POC GLUCOSE 149 mg/dL (70-99)
[2018-01-01] MEDS: INSULIN ASPART 300 UNITS/3 ML INSULN.PEN SQ ×3 (08:00→12:00)
[2018-01-01 08:39] LABS: ADD MAN DIFF? NO
[2018-01-01] MEDS: ASPIRIN 325 MG TABLET PO (08:43)
[2018-01-01] MEDS: metroNIDAZOLE 500 MG TABLET PO (08:43)
[2018-01-01] MEDS: FUROSEMIDE 40 MG/4 ML VIAL. IVP (08:43)
[2018-01-01] MEDS: ALBUMIN HUMAN 25% 100 ML IV (08:43)
[2018-01-01] MEDS: CALCIUM CARBONATE 500 MG TABLET PO (08:43)
[2018-01-01] MEDS: AMOXICILLIN/K CLAV 875/125MG TABLET. PO (08:43)
[2018-01-01] MEDS: LACTOBACILLUS RHAMNOSUS GG 1 CAPSULE. PO (08:45)
[2018-01-01] MEDS: INSULIN DETEMIR 300 UNITS/3 ML INSULN.PEN. SQ (08:47)
[2018-01-01] MEDS: SODIUM HYPOCHLORITE 0.125% 473 ML BOTTLE. TP (08:47)
[2018-01-01 08:48] LABS: BASO # 0.1 x10^3/uL (0.0-0.2); BASO % 1 % (0-3); EOS # 0.2 x10^3/uL (0.0-0.7); EOS % 1 % (0-3); HEMATOCRIT 24.1 % (36.0-47.0); HEMOGLOBIN 7.8 g/dL (12.0-15.5); LYMPH % 24 % (24-48); MEAN CORPUSCULAR HEMOGLOBIN 27 pg (25-35); MEAN CORPUSCULAR HGB CONC 32 g/dL (31-37); MEAN CORPUSCULAR VOLUME 83 fL (79-100); MONO # 1.1 x10^3/uL (0.0-1.1); MONO % 9 % (0-9); NEUT # 8.5 x10^3uL (1.8-7.7); NEUT % 66 % (31-73); PLATELET COUNT 432 x10^3/uL (140-400); RED BLOOD COUNT 2.92 x10^6/uL (3.50-5.40); RED CELL DISTRIBUTION WIDTH 14.3 % (11.5-14.5); WHITE BLOOD COUNT 12.9 x10^3/uL (4.0-11.0)
[2018-01-01 12:31] LABS: POC GLUCOSE 97 mg/dL (70-99)
[2018-01-01] MEDS: MICAFUNGIN 100 MG in IV DEXTROSE 5% 100 ML IV (13:02)
[2018-01-01] MEDS: FLUCONAZOLE 100 MG TABLET. PO (13:02)
[2018-01-01] MEDS ORDERED: INSULIN ASPART 300 UNITS/3 ML INSULN.PEN SQ (16:30)
[2018-01-02] MEDS ORDERED: INSULIN DETEMIR 300 UNITS/3 ML INSULN.PEN. SQ (09:00)
[2018-01-02] MEDS ORDERED: FUROSEMIDE 40 MG TABLET. PO (09:00)
== END 2018-01-01 15:58 | disposition home health service (06) | DRG 853 ==
LOC: ER 19:53 → 6 SOUTH 22:32
PROVIDERS: Internal Medicine
PROC: 30233N1 Transfusion of Nonautologous Red Blood Cells into Peripheral Vein, Percutaneous Approach (ICD-10-PCS; principal; 2017-12-26 16:02)
PROC: 0J9L0ZZ Drainage of Right Upper Leg Subcutaneous Tissue and Fascia, Open Approach (ICD-10-PCS; 2017-12-26 16:02)
PROC: 02HV33Z Insertion of Infusion Device into Superior Vena Cava, Percutaneous Approach (ICD-10-PCS; 2017-12-26 16:02)
DX: A41.9 Sepsis, unspecified organism (principal); G93.41 Metabolic encephalopathy; N17.0 Acute kidney failure with tubular necrosis; E11.628 Type 2 diabetes mellitus with other skin complications; B35.6 Tinea cruris; D64.9 Anemia, unspecified; I50.20 Unspecified systolic (congestive) heart failure; L03.314 Cellulitis of groin; L02.415 Cutaneous abscess of right lower limb; I11.0 Hypertensive heart disease with heart failure; E11.65 Type 2 diabetes mellitus with hyperglycemia; E55.9 Vitamin D deficiency, unspecified; E86.0 Dehydration; E87.6 Hypokalemia; N76.0 Acute vaginitis; Z79.4 Long term (current) use of insulin; Z79.82 Long term (current) use of aspirin; R06.03 Acute respiratory distress
CPT/HCPCS: 36415; 36569; 51702; 70450; 70551; 71045; 73560; 74177; 76770; 76856; 80048; 80053; 80061; 80069; 80307; 81001; 82274; 82306; 82550; 82570; 82607; 82962; 83036; 83605; 83735; 84100; 84132; 84134; 84156; 84443; 84484; 85007; 85025; 85610; 86850; 86900; 86901; 86920; 87040; 87045; 87070; 87071; 87075; 87086; 87205; 87324; 93005; 93880; 95816; 96361; 96365; 96366; 96368; 97116-GP; 97162-GP; 97166-GO; 97530-GO; 97530-GP; 97535-GO; 99285-25; C8929; J0133; J1650; J1815; J1940; J2020; J2185; J2248; J2270; J2405; J2543; J2704; J3010; J3370; J3480; J3490; J7030; J7042; J7120; P9016; P9046; Q0111; Q0162; Q9967; S0028

== ENCOUNTER → 2018-01-04 | Outpatient (CLI) | payer OTHER | END | disposition home or self-care (01) | LOC: PMGWOUND 12:45 | DX: T81.31XA Disruption of external operation (surgical) wound, not elsewhere classified, initial encounter (principal); E11.65 Type 2 diabetes mellitus with hyperglycemia; I11.0 Hypertensive heart disease with heart failure; I50.20 Unspecified systolic (congestive) heart failure; Z79.4 Long term (current) use of insulin; Z79.82 Long term (current) use of aspirin; Y83.8 Other surgical procedures as the cause of abnormal reaction of the patient, or of later complication, without mention of misadventure at the time of the procedure | CPT/HCPCS: 99214 ==

== ENCOUNTER → 2018-01-11 | Outpatient (CLI) | payer OTHER | END | disposition home or self-care (01) | LOC: PMGWOUND 09:00 | DX: T81.31XD Disruption of external operation (surgical) wound, not elsewhere classified, subsequent encounter (principal); I10 Essential (primary) hypertension; Y83.8 Other surgical procedures as the cause of abnormal reaction of the patient, or of later complication, without mention of misadventure at the time of the procedure | CPT/HCPCS: 99214 ==

== ENCOUNTER → 2018-01-18 | Outpatient (CLI) | payer OTHER | END | disposition home or self-care (01) | LOC: PMGWOUND 08:28 | DX: T81.31XD Disruption of external operation (surgical) wound, not elsewhere classified, subsequent encounter (principal); I11.0 Hypertensive heart disease with heart failure; I50.20 Unspecified systolic (congestive) heart failure; E11.65 Type 2 diabetes mellitus with hyperglycemia; Z79.4 Long term (current) use of insulin; Z79.82 Long term (current) use of aspirin; Y83.8 Other surgical procedures as the cause of abnormal reaction of the patient, or of later complication, without mention of misadventure at the time of the procedure | CPT/HCPCS: 99213 ==

== ENCOUNTER → 2018-01-25 | Outpatient (CLI) | payer OTHER | END | disposition home or self-care (01) | LOC: PMGWOUND 08:36 | DX: T81.31XD Disruption of external operation (surgical) wound, not elsewhere classified, subsequent encounter (principal); I11.0 Hypertensive heart disease with heart failure; I50.20 Unspecified systolic (congestive) heart failure; E11.65 Type 2 diabetes mellitus with hyperglycemia; Z79.4 Long term (current) use of insulin; Z79.82 Long term (current) use of aspirin; Y83.8 Other surgical procedures as the cause of abnormal reaction of the patient, or of later complication, without mention of misadventure at the time of the procedure | CPT/HCPCS: 99214 ==

== ENCOUNTER → 2018-02-01 | Outpatient (CLI) | payer OTHER | END | disposition home or self-care (01) | LOC: PMGWOUND 08:19 | DX: T81.31XD Disruption of external operation (surgical) wound, not elsewhere classified, subsequent encounter (principal); I11.0 Hypertensive heart disease with heart failure; I50.20 Unspecified systolic (congestive) heart failure; E11.65 Type 2 diabetes mellitus with hyperglycemia; Z79.4 Long term (current) use of insulin; Z79.82 Long term (current) use of aspirin; Y83.8 Other surgical procedures as the cause of abnormal reaction of the patient, or of later complication, without mention of misadventure at the time of the procedure | CPT/HCPCS: 99214 ==